=== PATIENT | female | born 1975 | race Caucasian/White ===

== ENCOUNTER 2018-10-29 12:00 | Emergency (ER) | payer MEDICARE, OTHER ==
[~2018-10-29] VITALS: Ht 170.2 cm; Wt 110.5 kg
[2018-10-29 12:04] VITALS: BP 142/74; TEMP 98.8
[2018-10-29] MEDS ORDERED: CLEOCIN HCL300 MG PO (12:36)
[2018-10-29 13:04] VITALS: PULSE 86
== END 2018-10-29 13:06 | disposition home or self-care (01) ==
LOC: COL.ER 12:00
DX: K08.89 Other specified disorders of teeth and supporting structures (principal); E11.9 Type 2 diabetes mellitus without complications; F31.9 Bipolar disorder, unspecified; Z90.710 Acquired absence of both cervix and uterus; Z79.4 Long term (current) use of insulin; Z98.818 Other dental procedure status